=== PATIENT | female | born 1970 | race Caucasian/White ===

== ENCOUNTER 2022-05-06 11:10 | Outpatient (CLI) | payer BC | END 2022-05-06 11:11 | disposition home or self-care (01) | LOC: LABBT 11:10 | PROVIDERS: ATTEND Surgery | DX: Z01.818 Encounter for other preprocedural examination (principal); Z20.822 Contact with and (suspected) exposure to COVID-19 | CPT/HCPCS: 87811; 93005; 93010 ==

== ENCOUNTER 2022-05-06 12:00 | Inpatient (IN) | payer BC ==
[2022-05-07 13:19] VITALS: BMI 40.0
[2022-05-11] MEDS ORDERED: fentaNYL Citrate/PF 100 MCG/2 ML SYRINGE ONE ×2 (06:26→09:59)
[2022-05-11] MEDS ORDERED: cefOXitin 2 GM VIAL ONE ×2 (06:43→07:28)
[2022-05-11] MEDS ORDERED: Sodium Chloride 0.9% 0 ML ONE (06:43)
[2022-05-11] MEDS ORDERED: Scopolamine 1.5 mg/72 hour Patch ONE (06:43)
[2022-05-11] MEDS ORDERED: Lidocaine 1% MPF 2 ML VIAL ONE (06:44)
[2022-05-11] MEDS ORDERED: Bupivacaine 0.25% HCL 30 ML VIAL ONE (06:52)
[2022-05-11] MEDS ORDERED: EPINEPHrine 1 MG/ML AMP ONE (06:52)
[2022-05-11] MEDS ORDERED: Enoxaparin Sodium 40 MG/0.4 ML SYRINGE SC SCH ×2 (07:00→07:45)
[2022-05-11] MEDS ORDERED: Sodium Chloride 0.9% 100 ML ONE (07:28)
[2022-05-11] MEDS ORDERED: Esmolol 100 MG/10 ML VIAL ONE (07:56)
[2022-05-11] MEDS ORDERED: PROPOFOL 200 MG/20 ML VIAL ONE (07:56)
[2022-05-11] MEDS ORDERED: Lidocaine 1% PF 5 ML VIAL ONE (07:56)
[2022-05-11] MEDS ORDERED: Dexamethasone 20 MG/5 ML VIAL ONE (07:56)
[2022-05-11] MEDS ORDERED: Glycopyrrolate 0.2 MG/ML 5 ML SYRINGE ONE ×2 (07:56)
[2022-05-11] MEDS ORDERED: NEOSTIGMINE 3 MG/3 ML SYR 3 MG/3 ML SYRINGE ONE (07:56)
[2022-05-11] MEDS ORDERED: Rocuronium Bromide 10 MG/ML (10ML VIAL) ONE (07:56)
[2022-05-11] MEDS ORDERED: PHENYLEPHRINE-NS 100 MCG/ML 10 ML SYRINGE ONE (07:56)
[2022-05-11] MEDS ORDERED: SUGAMMADEX SODIUM 200 MG/2 ML VIAL ONE (09:59)
[2022-05-11] MEDS ORDERED: Ondansetron HCl/PF 4 MG/2 ML Vial IVP PRN (10:21)
[2022-05-11] MEDS ORDERED: Promethazine HCl 25 MG/ML VIAL IVPB PRN (10:21)
[2022-05-11] MEDS ORDERED: Promethazine HCl 25 MG/ML VIAL IM PRN ×2 (10:21→10:35)
[2022-05-11] MEDS ORDERED: diphenhydrAMINE 50 MG/ML VIAL IVP PRN (10:35)
[2022-05-11] MEDS ORDERED: Morphine 2 MG/ML VIAL SLOW IVP PRN (10:35)
[2022-05-11] MEDS ORDERED: hydrALAZINE 20 MG/ML VIAL SLOW IVP PRN (10:35)
[2022-05-11] MEDS ORDERED: Dextrose 50% Abboject 50 ML SYRINGE SLOW IVP PRN (10:35)
[2022-05-11] MEDS ORDERED: Dextrose 5% in Water 1,000 ML IV PRN (10:35)
[2022-05-11] MEDS ORDERED: Hydrocodone-Acetamin 15 ML UDCUP PO PRN (10:35)
[2022-05-11] MEDS ORDERED: Fentanyl 100 MCG/2 ML VIAL ONE (10:39)
[2022-05-11] MEDS: Ketorolac Tromethamine 30 MG/ML VIAL IVP SCH ×3 (12:37→23:38)
[2022-05-11] MEDS: D5 1/2 NS w/20 mEq KCL 1,000 ML IV SCH ×2 (14:00→20:18)
[2022-05-11] MEDS: Ondansetron PF 4 MG/2 ML Vial IVP PRN ×2 (14:11→21:31)
[2022-05-12] MEDS: D5 1/2 NS w/20 mEq KCL 1,000 ML IV SCH (01:17)
[2022-05-12] MEDS: Ketorolac Tromethamine 30 MG/ML VIAL IVP SCH (06:20)
[2022-05-12 06:45] LABS: Band 3 % (5-11); Lymphocytes 11 % (21-51); MDiff Complete? YES; Mean Corpuscular HGB CONC 33.9 g/dL (32.0-36.0); Mean Corpuscular Hemoglobin 31.1 pg (27.0-31.0); Mean Corpuscular Volume 91.8 fL (78.0-98.0); Mean Platelet Volume 8.1 fL (7.4-10.4); Monocytes 6 % (0-10); Neutrophil 80 % (42-75); Platelet Count 233 thou/uL (130-400); RBC Distribution Width 11.9 % (11.5-14.5); White Blood Cell (WBC) Count 9.6 thou/uL (4.8-10.8)
[2022-05-12 07:24] LABS: Anion Gap 14 mmol/L (10-20); BUN (Urea Nitrogen) 8 mg/dL (9.8-20.1); Calc. Creatinine Clearance 135 mL/min (70-130); Calcium 9.3 mg/dL (7.8-10.44); Carbon Dioxide 20 mmol/L (22-29); Chloride 106 mmol/L (98-107); Estimated GFR 89; Glucose 98 mg/dL (70-105); Potassium 4.2 mmol/L (3.5-5.1); Sodium 136 mmol/L (136-145)
[2022-05-12 07:41] VITALS: BP 148/88; TEMP 98.4
[2022-05-12] MEDS: Ondansetron PF 4 MG/2 ML Vial IVP PRN (08:44)
[2022-05-12] MEDS ORDERED: Pantoprazole 40 MG VIAL IVP SCH (09:00)
[2022-05-12] MEDS ORDERED: FLU VACC QS2022-23(6MOS UP)/PF 60 MCG/0.5 ML SYRINGE IM ONE (09:00)
[2022-05-12] MEDS ORDERED: Enoxaparin Sodium 40 MG/0.4 ML SYRINGE SC SCH (09:00)
== END 2022-05-12 10:25 | disposition home or self-care (01) | DRG 621 ==
LOC: SURG A 05-11 05:45 → SURG B 05-11 12:20
PROVIDERS: ADMIT Surgery; ATTEND Surgery
PROC: 0DB64Z3 Excision of Stomach, Percutaneous Endoscopic Approach, Vertical (ICD-10-PCS; principal; 2022-05-11)
PROC: 0BQT4ZZ Repair Diaphragm, Percutaneous Endoscopic Approach (ICD-10-PCS; 2022-05-11)
PROC: 8E0W4CZ Robotic Assisted Procedure of Trunk Region, Percutaneous Endoscopic Approach (ICD-10-PCS; 2022-05-11)
DX: E66.01 Morbid (severe) obesity due to excess calories (principal); E78.00 Pure hypercholesterolemia, unspecified; F32.A Depression, unspecified; I10 Essential (primary) hypertension; E78.5 Hyperlipidemia, unspecified; K21.9 Gastro-esophageal reflux disease without esophagitis; K44.9 Diaphragmatic hernia without obstruction or gangrene; Z68.41 Body mass index [BMI] 40.0-44.9, adult; Z98.51 Tubal ligation status; Z98.890 Other specified postprocedural states
CPT/HCPCS: 36415; 80048; 85025; 88307; C9113; J0171; J0694; J1100; J1650; J1885; J2270; J2405; J2704; J3010; J3480; J3490; S0020